=== PATIENT | female | born 1980 | race Caucasian/White ===

== ENCOUNTER → 2018-02-27 | Emergency (ER) | payer OTHER ==
[~2018-02-27] VITALS: Ht 167.6 cm; Wt 118.0 kg
[~2018-02-27] MED LIST: ADIPEX-P37.5 M1 PO; METHADONE10 MG PO; OXYCODONE HCL30 MG PO; PROAIR HFA8.5 GM IH; ZOFRAN4 MG PO
[2018-02-27 08:55] LABS: HEMATOCRIT 36.1 % (36.0-46.0); MCHC 33.2 G/DL (30.0-36.0); MCV 87.2 FL (83-99); PLATELET COUNT 262 K/uL (156-360); RBC DIS.WIDTH-CV 13.2 % (11.8-14.6); RED BLOOD COUNT 4.14 M/uL (3.80-5.20); WHITE BLOOD COUNT 4.4 K/uL (4.1-10.2)
[2018-02-27 09:47] LABS: CHLORIDE 106 mEq/L (99-109); POTASSIUM 3.8 mEq/L (3.7-5.4); SODIUM 141 mEq/L (136-147)
[2018-02-27 09:49] LABS: GLUCOSE 96 mg/dL (70-99)
[2018-02-27 09:51] LABS: TOTAL BILIRUBIN 0.5 mg/dL (0.0-1.0)
[2018-02-27 09:52] LABS: ALKALINE PHOSPHATASE 97 IU/L (3-129)
[2018-02-27 09:53] LABS: CREATININE 0.9 mg/dL (0.6-1.3); GFR ESTIMATE (CALCULATED) > 59 mL/min/
[2018-02-27 09:54] LABS: AST (GOT) 25 IU/L (2-34); UREA NITROGEN (BUN) 13 mg/dL (9-23)
[2018-02-27 09:55] LABS: ALT (GPT) 34 IU/L (3-49)
[2018-02-27 10:08] LABS: APPEARANCE CLOUDY ((CLEAR)); BILIRUBIN NEGATIVE; BLOOD NEGATIVE; COLOR YELLOW ((YELLOW)); GLUCOSE (STRIP) NEGATIVE; KETONES NEGATIVE; LEUKOCYTES NEGATIVE; NITRITE NEGATIVE; PROTEIN (STRIP) NEGATIVE; SPECIFIC GRAVITY 1.027 (1.000-1.030); UROBILINOGEN 0.2 MG/DL (0.2-1.0)
[2018-02-27 10:35] LABS: AMORPHOUS URATES CRYSTALS 1+; BACTERIA 1+ /HPF; EPITHELIAL CELLS 2+ /HPF; MUCUS NONE SEEN /LPF; RED BLOOD CELLS NONE SEEN /HPF (0-5); UCUL ADDED? NO; WHITE BLOOD CELLS NONE SEEN /HPF (0-5)
[2018-02-27 10:45] VITALS: BP 130/78
== END | disposition home or self-care (01) ==
LOC: EME 08:21
PROVIDERS: Nurse Practitioner Family
DX: N64.4 Mastodynia (principal); R91.1 Solitary pulmonary nodule; Z86.711 Personal history of pulmonary embolism; R11.2 Nausea with vomiting, unspecified
CPT/HCPCS: 71046; 76641; 80053; 81003; 85027; 99281; 99284

== ENCOUNTER 2018-03-09 19:28 | Emergency (ER) | payer OTHER ==
[~2018-03-09] VITALS: Ht 167.6 cm; Wt 117.0 kg
[2018-03-09 20:12] LABS: HEMATOCRIT 37.4 % (36.0-46.0); HEMOGLOBIN 12.4 G/DL (11.9-15.5); MCH 28.9 PG (29.0-34.0); MCHC 33.2 G/DL (30.0-36.0); MCV 87.2 FL (83-99); PLATELET COUNT 261 K/uL (156-360); RBC DIS.WIDTH-CV 13.4 % (11.8-14.6); RBC DIS.WIDTH-SD 42.8 % (39-53); RED BLOOD COUNT 4.29 M/uL (3.80-5.20); WHITE BLOOD COUNT 6.4 K/uL (4.1-10.2)
[2018-03-09 20:21] LABS: CHLORIDE 106 mEq/L (99-109); POTASSIUM 3.9 mEq/L (3.7-5.4); SODIUM 141 mEq/L (136-147)
[2018-03-09 20:23] LABS: GLUCOSE 103 mg/dL (70-99)
[2018-03-09 20:27] LABS: CREATININE 0.9 mg/dL (0.6-1.3); GFR ESTIMATE (CALCULATED) > 59 mL/min/; UREA NITROGEN (BUN) 15 mg/dL (9-23)
[2018-03-09 21:30] LABS: CREATINE KINASE 58 IU/L (1-294)
[2018-03-09] MEDS ORDERED: INDOCIN50 MG PO (22:06)
[2018-03-09 22:17] VITALS: BP 140/92
== END 2018-03-09 22:17 | disposition home or self-care (01) ==
LOC: EME 19:28
PROVIDERS: Physician Assistant
DX: R07.89 Other chest pain (principal); R91.1 Solitary pulmonary nodule; R03.0 Elevated blood-pressure reading, without diagnosis of hypertension; Z86.718 Personal history of other venous thrombosis and embolism; Z86.711 Personal history of pulmonary embolism; Z90.710 Acquired absence of both cervix and uterus
CPT/HCPCS: 71046; 80048; 82550; 85027; 85379; 93005; 99281; 99285; J1885